=== PATIENT | male | born 1965 | race Caucasian/White ===

== ENCOUNTER 2019-01-12 12:05 | Outpatient (REF) | payer MEDICAID, SELFPAY ==
[2019-01-13 08:43] LABS: Anion Gap 10.5 mmol/L (3-11); BUN 22 mg/dL (7-18); CO2 26.5 mmol/L (21.0-32.0); CREATININE 0.93 mg/dL (0.70-1.30); Calcium 9.2 mg/dL (8.5-10.1); Calculated LDL 148 mg/dL; Chloride 102 mmol/L (98-107); Cholesterol 230 mg/dL (50-200); Glucose 94 mg/dL (70-100); HDL Cholesterol 40 mg/dL (40-60); Potassium 4.6 mmol/L (3.5-5.1); Sodium 139 mmol/L (136-145); Triglyceride 211 mg/dL (30-150)
== END 2019-01-12 12:25 ==
LOC: NCHCN 12:05
PROVIDERS: PCP Internal Medicine; Visit Provider Internal Medicine
DX: I10 Essential (primary) hypertension (principal); E78.5 Hyperlipidemia, unspecified
CPT/HCPCS: 80048; 80061

== ENCOUNTER 2020-01-23 08:57 | Outpatient (REF) | payer MEDICAID, SELFPAY ==
[2020-01-23 21:18] LABS: Anion Gap 6.3 mmol/L (3-11); BUN 19 mg/dL (7-18); CO2 30.7 mmol/L (21.0-32.0); CREATININE 1.05 mg/dL (0.70-1.30); Calcium 9.8 mg/dL (8.5-10.1); Calculated LDL 179 mg/dL (<100); Chloride 99 mmol/L (98-107); Cholesterol 259 mg/dL (<200); Glucose 100 mg/dL (74-106); HDL Cholesterol 44 mg/dL (40-60); Potassium 4.5 mmol/L (3.5-5.1); Sodium 136 mmol/L (136-145); Triglyceride 180 mg/dL (<150)
== END 2020-01-23 09:17 ==
LOC: NCHCN 08:57
PROVIDERS: PCP Internal Medicine; Visit Provider Internal Medicine
DX: E78.5 Hyperlipidemia, unspecified (principal); I10 Essential (primary) hypertension
CPT/HCPCS: 80048; 80061

== ENCOUNTER 2021-01-30 14:20 | Outpatient (REF) | payer MEDICAID, SELFPAY ==
[2021-01-30 15:56] LABS: ALT 73 U/L (16-63); AST 38 U/L (15-37); Albumin 4.6 g/dL (3.4-5.0); Alkaline Phosphatase 70 U/L (46-116); Anion Gap 11.1 mmol/L (3-11); BUN 27 mg/dL (7-18); Bilirubin, Total 1.3 mg/dL (0.2-1.0); CO2 27.9 mmol/L (21.0-32.0); Calcium 9.6 mg/dL (8.5-10.1); Calculated LDL 209 mg/dL (<100); Chloride 101 mmol/L (98-107); Cholesterol 294 mg/dL (<200); Glucose 101 mg/dL (74-106); HDL Cholesterol 51 mg/dL (40-60); Potassium 4.5 mmol/L (3.5-5.1); Sodium 140 mmol/L (136-145); Triglyceride 170 mg/dL (<150)
[2021-01-31 15:31] LABS: PSA, Screening 3.6 ng/mL (0.0-3.5)
== END 2021-01-30 14:21 | disposition home or self-care (01) ==
LOC: NCHCN 14:20
PROVIDERS: PCP Internal Medicine; Visit Provider Internal Medicine
DX: Z12.5 Encounter for screening for malignant neoplasm of prostate (principal); I10 Essential (primary) hypertension; E78.5 Hyperlipidemia, unspecified; R73.9 Hyperglycemia, unspecified
CPT/HCPCS: 80053; 80061; 84153

== ENCOUNTER 2021-08-05 07:50 | Outpatient (REF) | payer MEDICAID, SELFPAY ==
[2021-08-05 17:59] LABS: ALT 58 U/L (16-63); AST 34 U/L (15-37); Albumin 4.5 g/dL (3.4-5.0); Alkaline Phosphatase 78 U/L (46-116); Anion Gap 11.4 mmol/L (3-11); BUN 21 mg/dL (7-18); Bilirubin, Total 1.1 mg/dL (0.2-1.0); CO2 26.6 mmol/L (21.0-32.0); CREATININE 1.1 mg/dL (0.70-1.30); Calcium 9.1 mg/dL (8.5-10.1); Calculated LDL 183 mg/dL (<100); Chloride 102 mmol/L (98-107); Cholesterol 266 mg/dL (<200); Glucose 101 mg/dL (74-106); HDL Cholesterol 55 mg/dL (40-60); Sodium 140 mmol/L (136-145); Total Protein 8.1 g/dL (6.4-8.2); Triglyceride 140 mg/dL (<150)
[2021-08-07 10:10] LABS: HBs Antibody, Quant <3.1 mIU/mL (See Note); Hepatitis B Surface Ab Negative (See Note)
[2021-08-07 10:21] LABS: Hepatitis B Surface Ag Negative (Negative)
[2021-08-07 11:03] LABS: Hepatitis C Ab w Rflx HCV PCR Negative (Negative)
== END 2021-08-05 07:51 | disposition home or self-care (01) ==
LOC: NCHCN 07:50
PROVIDERS: PCP Internal Medicine; Visit Provider Internal Medicine
DX: E78.5 Hyperlipidemia, unspecified (principal); I10 Essential (primary) hypertension; R79.89 Other specified abnormal findings of blood chemistry; Z11.59 Encounter for screening for other viral diseases
CPT/HCPCS: 80053; 80061; 85027; 86706; 86803; 87340

== ENCOUNTER 2021-08-12 17:22 | Outpatient (REF) | payer MEDICAID, SELFPAY ==
[2021-08-12 23:10] LABS: PSA, Screening 3.7 ng/mL (<=3.5)
== END 2021-08-12 17:23 | disposition home or self-care (01) ==
LOC: NCHCN 17:22
PROVIDERS: PCP Internal Medicine; Visit Provider Internal Medicine
DX: Z12.5 Encounter for screening for malignant neoplasm of prostate (principal)
CPT/HCPCS: 84153

== ENCOUNTER 2022-02-26 15:42 | Outpatient (REF) | payer MEDICAID, SELFPAY ==
[2022-02-26 16:23] LABS: ALT 62 U/L (16-63); AST 39 U/L (15-37); Albumin 4.3 g/dL (3.4-5.0); Alkaline Phosphatase 67 U/L (46-116); Anion Gap 6.5 mmol/L (3-11); BUN 20 mg/dL (7-18); Bilirubin, Total 1.2 mg/dL (0.2-1.0); CO2 29.5 mmol/L (21.0-32.0); CREATININE 0.9 mg/dL (0.70-1.30); Calcium 9.4 mg/dL (8.5-10.1); Calculated LDL 144 mg/dL (<100); Chloride 100 mmol/L (98-107); Cholesterol 217 mg/dL (<200); Glucose 94 mg/dL (74-106); HDL Cholesterol 49 mg/dL (40-60); Potassium 4.2 mmol/L (3.5-5.1); Sodium 136 mmol/L (136-145); Total Protein 8.1 g/dL (6.4-8.2); Triglyceride 122 mg/dL (<150)
[2022-02-26 16:59] LABS: Hemoglobin A1C 5.2 % (<5.7)
[2022-02-26 22:55] LABS: PSA, Screening 5.1 ng/mL (<=3.5)
== END 2022-02-26 15:43 | disposition home or self-care (01) ==
LOC: NCHCN 15:42
PROVIDERS: PCP Internal Medicine; Visit Provider Internal Medicine
DX: E78.5 Hyperlipidemia, unspecified (principal); R73.09 Other abnormal glucose; Z12.5 Encounter for screening for malignant neoplasm of prostate
CPT/HCPCS: 80053; 80061; 84153; 83036

== ENCOUNTER 2022-07-11 13:40 | Outpatient (REF) | payer MEDICAID, SELFPAY ==
--- OUTSIDE RECORDS SUMMARY | 2022-07-11 13:42 | XMS_ITS | CCD ---
Author Name Unknown Address [address] [place] [address] [id number] Organization Unknown Address [address] [place] [address] [id number] Care Team Providers Care [employer]age Sales Representative Name Role Phone ANTOINETTE PRIETO Attending Physician [phone] Vital Signs Unknown or Not Available. Allergies Allergy Code Allergy Type Reaction Status No Known Allergies {Clinical monitoring unavailable} 0 Drug allergy Active Procedures Unknown or Not Available. History of Immunizations Unknown or Not Available. Problems Unknown or Not Available. Results Unknown or Not Available. Active Medications Unknown or Not Available. Medications Administered During Visit Unknown or Not Available. Encounters Encounter Diagnosis Diagnosis Code Start Date Other nonspecific abnormal finding of lung field [id number] 07/02/2022 Social History Smoking Status Code Start Date End Date Never smoker [id number] Patient Decision Aids Unknown or Not Available. Discharge Instructions You were admitted to [facility] on 07/02/2022 11:34 with a principal diagnosis of Other nonspecific abnormal finding of lung field You were discharged from [facility] on 07/02/2022 11:34 Should you have any questions prior to discharge, please contact a member of your healthcare team. If you have left the hospital and have any questions, please contact your primary care physician. Chief Complaint and Reason For Visit Unknown or Not Available. Function Status Unknown or Not Available. Plan of Care Unknown or Not Available. Referral/Transition of Care Unknown or Not Available.
[2022-07-11 15:55] LABS: BUN 24 mg/dL (7-18); Estimated GFR 87.24 (mL/min/1.73m2)
== END 2022-07-11 13:41 | disposition home or self-care (01) ==
LOC: NCHCN 13:40
PROVIDERS: PCP Internal Medicine; Visit Provider Internal Medicine
DX: R91.8 Other nonspecific abnormal finding of lung field (principal); Z00.00 Encounter for general adult medical examination without abnormal findings; Z01.812 Encounter for preprocedural laboratory examination
CPT/HCPCS: 84520; 82565

== ENCOUNTER 2022-07-29 14:48 | Outpatient (REF) | payer MEDICAID, SELFPAY ==
[2022-07-31 17:18] LABS: PSA, Ultrasensitive 7.7 ng/mL (<= 3.5)
[2022-08-13 09:12] LABS: Free PSA/PSA Ratio 0.12 ratio
== END 2022-07-29 14:49 | disposition home or self-care (01) ==
LOC: LBN 14:48
PROVIDERS: PCP Internal Medicine; Visit Provider Surgery
DX: R97.20 Elevated prostate specific antigen [PSA] (principal)
CPT/HCPCS: 84153; 84154

== ENCOUNTER 2022-11-17 11:57 | Outpatient (REF) | payer MEDICAID, SELFPAY ==
[2022-11-17 15:14] LABS: HCT 50.5 % (40.0-50.0); HGB 17.6 g/dL (13.5-17.5); MCH 32.1 pg (27.0-33.0); MCHC 34.9 % (32.0-36.0); MCV 92 fL (80-95); Platelet Count 206 10^3/uL (130-400); RBC 5.48 10^6/uL (4.36-5.78); RDW 11.6 % (11.8-14.1); RDW-SD 39.2 fL; WBC 6.34 10^3/uL (4.4-10.8)
[2022-11-17 16:04] LABS: ALT 62 U/L (16-63); AST 33 U/L (15-37); Albumin 4.1 g/dL (3.4-5.0); Alkaline Phosphatase 66 U/L (46-116); Anion Gap 9.5 mmol/L (3-11); BUN 18 mg/dL (7-18); Bilirubin, Total 1.1 mg/dL (0.2-1.0); CO2 26.5 mmol/L (21.0-32.0); CREATININE 1.1 mg/dL (0.70-1.30); Calcium 9.4 mg/dL (8.5-10.1); Calculated LDL 153 mg/dL (<100); Chloride 99 mmol/L (98-107); Cholesterol 237 mg/dL (<200); Estimated GFR 77.81 (mL/min/1.73m2); Glucose 110 mg/dL (74-106); HDL Cholesterol 46 mg/dL (40-60); Potassium 4.8 mmol/L (3.5-5.1); Sodium 135 mmol/L (136-145); Total Protein 7.9 g/dL (6.4-8.2); Triglyceride 190 mg/dL (<150)
== END 2022-11-17 11:58 | disposition home or self-care (01) ==
LOC: NCHCN 11:57
PROVIDERS: PCP Internal Medicine; Visit Provider Internal Medicine
DX: E78.5 Hyperlipidemia, unspecified (principal); I10 Essential (primary) hypertension; K76.0 Fatty (change of) liver, not elsewhere classified
CPT/HCPCS: 80053; 80061; 85027

== ENCOUNTER 2023-05-19 13:52 | Outpatient (REF) | payer MEDICAID, SELFPAY ==
[2023-05-19 14:51] LABS: ALT 52 U/L (16-63); AST 34 U/L (15-37); Albumin 4.2 g/dL (3.4-5.0); Alkaline Phosphatase 65 U/L (46-116); Anion Gap 7.9 mmol/L (3-11); BUN 21 mg/dL (7-18); Bilirubin, Total 1.1 mg/dL (0.2-1.0); CO2 29.1 mmol/L (21.0-32.0); CREATININE 1.1 mg/dL (0.70-1.30); Calcium 9.6 mg/dL (8.5-10.1); Calculated LDL 146 mg/dL (<100); Chloride 103 mmol/L (98-107); Cholesterol 232 mg/dL (<200); Estimated GFR 77.33 (mL/min/1.73m2); Glucose 103 mg/dL (74-106); HDL Cholesterol 53 mg/dL (40-60); Potassium 4.7 mmol/L (3.5-5.1); Sodium 140 mmol/L (136-145); Total Protein 7.8 g/dL (6.4-8.2); Triglyceride 169 mg/dL (<150)
[2023-05-19 17:40] LABS: Bilirubin, Direct 0.2 mg/dL (0.0-0.2)
== END 2023-05-19 13:53 | disposition home or self-care (01) ==
LOC: NCHCN 13:52
PROVIDERS: PCP Internal Medicine; Visit Provider Internal Medicine
DX: R17 Unspecified jaundice (principal); E78.5 Hyperlipidemia, unspecified
CPT/HCPCS: 80053; 80061; 82248

== ENCOUNTER 2023-11-16 15:04 | Outpatient (REF) | payer MEDICAID, SELFPAY ==
[2023-11-16 16:30] LABS: ALT 64 U/L (16-63); AST 43 U/L (15-37); Albumin 4.1 g/dL (3.4-5.0); Alkaline Phosphatase 79 U/L (46-116); Anion Gap 9.2 mmol/L (3-11); BUN 20 mg/dL (7-18); CO2 27.8 mmol/L (21.0-32.0); CREATININE 0.9 mg/dL (0.70-1.30); Calcium 9.4 mg/dL (8.5-10.1); Calculated LDL 122 mg/dL (<100); Chloride 102 mmol/L (98-107); Cholesterol 204 mg/dL (<200); Estimated GFR 98.38 (mL/min/1.73m2); Glucose 105 mg/dL (74-106); HDL Cholesterol 49 mg/dL (40-60); Potassium 4.8 mmol/L (3.5-5.1); Sodium 139 mmol/L (136-145); Total Protein 7.5 g/dL (6.4-8.2); Triglyceride 165 mg/dL (<150)
[2023-11-16 16:32] LABS: Hemoglobin A1C 5.4 % (<5.7)
== END 2023-11-16 15:05 | disposition home or self-care (01) ==
LOC: NCHCN 15:04
PROVIDERS: PCP Internal Medicine; Visit Provider Internal Medicine
DX: K76.0 Fatty (change of) liver, not elsewhere classified (principal); R73.03 Prediabetes; E78.5 Hyperlipidemia, unspecified
CPT/HCPCS: 80053; 80061; 83036

== ENCOUNTER 2023-11-23 13:19 | Outpatient (REF) | payer MEDICAID, SELFPAY ==
[2023-11-23 15:03] LABS: Iron 132 ug/dL (65-175); Total Iron Binding Capacity 330 ug/dL (250-450); Transferrin Sat 40 % (20-55)
[2023-11-23 15:23] LABS: Ferritin 152 ng/mL (26-388)
[2023-11-23 15:46] LABS: COMMENT (LAB VIEW ONLY) 100.07 mg/dL; Microalb ug/mg Crea 19.5 ug/mg Cr
== END 2023-11-23 13:20 | disposition home or self-care (01) ==
LOC: NCHCN 13:19
PROVIDERS: PCP Internal Medicine; Visit Provider Internal Medicine
DX: D75.1 Secondary polycythemia (principal); R60.0 Localized edema
CPT/HCPCS: 82043; 82570; 82728; 83540; 83550

== ENCOUNTER 2024-01-20 19:44 | Outpatient (REF) | payer MEDICAID, SELFPAY | END 2024-01-20 19:45 | disposition home or self-care (01) | LOC: LBN 19:44 | PROVIDERS: PCP Internal Medicine; Visit Provider Surgery | DX: C61 Malignant neoplasm of prostate (principal) | CPT/HCPCS: 84153 ==

== ENCOUNTER 2024-06-27 12:31 | Outpatient (REF) | payer MEDICAID, SELFPAY ==
[2024-06-27 15:19] LABS: HCT 50.4 % (40.0-50.0); HGB 17.1 g/dL (13.5-17.5); MCH 32.5 pg (27.0-33.0); MCHC 33.9 % (32.0-36.0); MCV 96 fL (80-95); MPV 9.9 fL (8.0-11.0); Platelet Count 196 10^3/uL (130-400); RBC 5.26 10^6/uL (4.36-5.78); RDW-SD 42.5 fL; WBC 7.17 10^3/uL (4.4-10.8)
[2024-06-27 16:06] LABS: ALT 60 U/L (16-63); AST 31 U/L (15-37); Albumin 3.8 g/dL (3.4-5.0); Alkaline Phosphatase 82 U/L (46-116); Anion Gap 6.2 mmol/L (3-11); BUN 17 mg/dL (7-18); Bilirubin, Total 0.5 mg/dL (0.2-1.0); CO2 30.8 mmol/L (21.0-32.0); CREATININE 0.9 mg/dL (0.70-1.30); Calcium 9.2 mg/dL (8.5-10.1); Calculated LDL 127 mg/dL (<100); Chloride 106 mmol/L (98-107); Cholesterol 201 mg/dL (<200); Estimated GFR 97.78 (mL/min/1.73m2); Glucose 90 mg/dL (74-106); HDL Cholesterol 50 mg/dL (>or=40); Potassium 4.7 mmol/L (3.5-5.1); Sodium 143 mmol/L (136-145); Total Protein 7.2 g/dL (6.4-8.2); Triglyceride 122 mg/dL (<150)
== END 2024-06-27 12:32 | disposition home or self-care (01) ==
LOC: NCHCN 12:31
PROVIDERS: PCP Internal Medicine; Visit Provider Internal Medicine
DX: I10 Essential (primary) hypertension (principal); E78.5 Hyperlipidemia, unspecified
CPT/HCPCS: 80053; 80061; 85027

== ENCOUNTER 2024-08-09 12:01 | Outpatient (REF) | payer MEDICAID, SELFPAY ==
[2024-08-09 16:14] LABS: Anion Gap 8.4 mmol/L (3-11); BUN 23 mg/dL (7-18); CO2 26.6 mmol/L (21.0-32.0); Calcium 9.5 mg/dL (8.5-10.1); Chloride 101 mmol/L (98-107); Estimated GFR 86.16 (mL/min/1.73m2); Glucose 121 mg/dL (74-106); Potassium 4.3 mmol/L (3.5-5.1); Sodium 136 mmol/L (136-145)
== END 2024-08-09 12:02 | disposition home or self-care (01) ==
LOC: NCHCN 12:01
PROVIDERS: PCP Internal Medicine; Visit Provider Internal Medicine
DX: I10 Essential (primary) hypertension (principal)
CPT/HCPCS: 80048

== ENCOUNTER 2024-08-29 15:57 | Outpatient (REF) | payer MEDICAID, SELFPAY ==
[2024-08-30 10:31] LABS: Lyme Ab w Rflx to Lyme Confirm Negative (Negative)
[2024-09-01 23:07] LABS: Histoplasma/Blastomyces Result Not Detected (NotDetected); Histoplasma/Blastomyces Value Not Detected
[2024-09-27 09:33] LABS: Fungus Smear No Fungi Seen
== END 2024-08-29 15:58 | disposition home or self-care (01) ==
LOC: NCHCN 15:57
PROVIDERS: PCP Internal Medicine; Visit Provider Internal Medicine
DX: R05.3 Chronic cough (principal); M25.59 Pain in other specified joint
CPT/HCPCS: 87102; 87107; 87206; 87449; 86618

== ENCOUNTER 2024-11-11 16:50 | Outpatient (REF) | payer MEDICAID, SELFPAY ==
[2024-11-11 15:01] LABS: HCT 47.6 % (40.0-50.0); HGB 16.4 g/dL (13.5-17.5); MCH 32.1 pg (27.0-33.0); MCHC 34.5 % (32.0-36.0); MCV 93 fL (80-95); MPV 10.6 fL (8.0-11.0); Platelet Count 159 10^3/uL (130-400); RBC 5.11 10^6/uL (4.36-5.78); RDW 11.5 % (11.8-14.1); RDW-SD 39.7 fL; WBC 9.94 10^3/uL (4.4-10.8)
[2024-11-11 15:31] LABS: ALT 82 U/L (16-63); AST 34 U/L (15-37); Albumin 4.3 g/dL (3.4-5.0); Alkaline Phosphatase 93 U/L (46-116); Anion Gap 13.4 mmol/L (3-11); BUN 33 mg/dL (7-18); Bilirubin, Total 0.8 mg/dL (0.2-1.0); CO2 24.6 mmol/L (21.0-32.0); Calcium 9.2 mg/dL (8.5-10.1); Chloride 100 mmol/L (98-107); Estimated GFR 76.85 (mL/min/1.73m2); Glucose 114 mg/dL (74-106); Potassium 4.6 mmol/L (3.5-5.1); Sodium 138 mmol/L (136-145); TSH (W/Ref FT4) 2.37 uIU/mL (0.36-3.74); Total Protein 7.6 g/dL (6.4-8.2)
== END 2024-11-11 16:51 | disposition home or self-care (01) ==
LOC: NCHCN 16:50
PROVIDERS: PCP Internal Medicine; Visit Provider Internal Medicine
DX: E66.9 Obesity, unspecified (principal); E78.5 Hyperlipidemia, unspecified; D75.1 Secondary polycythemia
CPT/HCPCS: 80053; 85027; 84443